=== PATIENT | male | born 1975 | race Caucasian/White ===

== ENCOUNTER → 2021-06-05 18:08 | Outpatient (CLI) | payer MEDICAID, SELFPAY ==
[2021-06-05 19:07] LABS: Basophils # 0.1 K/mm3 (0-0.2); Basophils % 0.7 % (0.1-2.0); Eosinophils # 0.1 K/mm3 (0.0-0.4); Eosinophils % 1.5 % (0.1-12.0); Hemoglobin 15.7 g/dL (14.1-18.0); Lymphocytes # 1.6 K/mm3 (0.7-4.5); Lymphocytes % 22.6 % (10-50); Mean Corpuscular HGB Conc 32.8 g/dL (31.8-35.4); Mean Corpuscular Hemoglobin 29.2 pg (27.0-31.2); Mean Corpuscular Volume 89.2 fl (80-94); Mean Platelet Volume 8.2 fl (7.4-10.4); Monocytes # 0.4 K/mm3 (0.1-1.0); Monocytes % 6.5 % (1.7-9.3); Neutrophils # 4.7 K/mm3 (1.8-7.8); Neutrophils % 68.7 % (37.0-80.0); Platelet Count 374 K/mm3 (142-424); Red Blood Count 5.38 M/mm3 (4.60-6.20); Red Cell Distribution Width 13.1 % (11.5-17.5); White Blood Count 6.9 K/mm3 (4.8-10.8)
[2021-06-05 20:03] LABS: Alanine Aminotransferase 89 U/L (12-78); Albumin Level 4.5 g/dl (3.5-5.0); Albumin/Globulin Ratio 1.3 (1.1-1.8); Alkaline Phosphatase 84 U/L (38-126); Anion Gap 13.4 mEq/L (5-15); Aspartate Amino Transferase 61 U/L (17-59); Bilirubin,Total 0.3 mg/dl (0.2-1.3); Blood Urea Nitrogen 21 mg/dl (9-20); Calcium 9.9 mg/dl (8.4-10.2); Carbon Dioxide 32 mmol/L (22.0-30.0); Chloride 99 mmol/L (98-107); Chol/HDL Ratio 7.8 (1-3.5); Cholesterol 203 mg/dl (140-200); Estimated Glomerular Filt Rate 80 ml/min (>60); GFR (African American) 97 ML/MIN (>60); Globulin 3.4 g/dL (1.3-3.2); Glucose 116 mg/dl (74-100); HDL Cholesterol 26 mg/dl (40-60); Potassium 4.4 mmoL/L (3.5-5.1); Sodium 140 mmol/L (136-145); Total Protein,Serum 7.9 g/dl (6.3-8.2); Triglycerides 355 mg/dl (30-150); VLDL Cholesterol 71 mg/dL (0-40)
[2021-06-05 20:14] LABS: Direct LDL Cholesterol 127.73 mg/dL (100-129)
== END ==
PROVIDERS: Visit Provider Family Medicine
DX: E03.9 Hypothyroidism, unspecified (principal); K64.9 Unspecified hemorrhoids
CPT/HCPCS: 80053; 80061; 85025

== ENCOUNTER → 2022-09-13 10:46 | Outpatient (CLI) | payer MEDICAID, SELFPAY ==
[2022-09-13 18:46] LABS: Basophils % 0.3 % (0.1-2.0); Eosinophils % 0.3 % (0.1-12.0); Hematocrit 53.4 % (42.0-52.0); Hemoglobin 17.5 g/dL (14.1-18.0); Lymphocytes # 1.9 K/mm3 (0.7-4.5); Lymphocytes % 17.6 % (10-50); Mean Corpuscular HGB Conc 32.8 g/dL (31.8-35.4); Mean Corpuscular Hemoglobin 29.1 pg (27.0-31.2); Mean Corpuscular Volume 88.8 fl (80-94); Monocytes # 0.6 K/mm3 (0.1-1.0); Monocytes % 5.4 % (1.7-9.3); Neutrophils # 8.1 K/mm3 (1.8-7.8); Neutrophils % 76.4 % (37.0-80.0); Platelet Count 301 K/mm3 (142-424); Red Blood Count 6.01 M/mm3 (4.60-6.20); Red Cell Distribution Width 13.2 % (11.5-17.5); White Blood Count 10.6 K/mm3 (4.8-10.8)
[2022-09-13 19:03] LABS: Alanine Aminotransferase 96 U/L (12-78); Albumin/Globulin Ratio 1.4 (1.1-1.8); Alkaline Phosphatase 83 U/L (38-126); Anion Gap 11.1 mEq/L (5-15); Aspartate Amino Transferase 59 U/L (17-59); Bilirubin,Total 0.6 mg/dl (0.2-1.3); Blood Urea Nitrogen 20 mg/dl (9-20); Calcium 9.3 mg/dl (8.4-10.2); Carbon Dioxide 31 mmol/L (22.0-30.0); Chloride 99 mmol/L (98-107); Cholesterol 232 mg/dl (140-200); Estimated Glomerular Filt Rate 71 ml/min (>60); GFR (African American) 86 ML/MIN (>60); Globulin 3.5 g/dL (1.3-3.2); Glucose 101 mg/dl (74-100); HDL Cholesterol 33 mg/dl (40-60); Potassium 4.1 mmoL/L (3.5-5.1); Sodium 137 mmol/L (136-145); Total Protein,Serum 8.5 g/dl (6.3-8.2); Triglycerides 309 mg/dl (30-150); VLDL Cholesterol 62 mg/dL (0-40)
[2022-09-13 19:14] LABS: Direct LDL Cholesterol 145.74 mg/dL (100-129)
[2022-09-13 19:33] LABS: Prostate Specific Ag Screen 1.1 ng/ml (0.0-4.0); Thyroid Stimulating Hormone 2.16 uIU/mL (0.465-4.68)
[2022-09-13 21:01] LABS: Hemoglobin A1C 8.8 % (4.0-6.0)
== END ==
PROVIDERS: PCP Family Medicine; Visit Provider Family Medicine
DX: G51.0 Bell's palsy (principal); Z79.899 Other long term (current) drug therapy; Z12.5 Encounter for screening for malignant neoplasm of prostate
CPT/HCPCS: 80053; 80061; 83036; 84443; 85025; G0103

== ENCOUNTER 2023-06-16 23:17 | Outpatient (CLI) | payer MEDICAID, SELFPAY ==
[2023-06-16 18:29] LABS: Basophils % 0.4 % (0.1-2.0); Eosinophils # 0.1 K/mm3 (0.0-0.4); Eosinophils % 1.7 % (0.1-12.0); Hematocrit 48.9 % (42.0-52.0); Hemoglobin 16.3 g/dL (14.1-18.0); Lymphocytes # 1.7 K/mm3 (0.7-4.5); Lymphocytes % 22.2 % (10-50); Mean Corpuscular HGB Conc 33.4 g/dL (31.8-35.4); Mean Corpuscular Hemoglobin 29.4 pg (27.0-31.2); Mean Platelet Volume 8.8 fl (7.4-10.4); Monocytes # 0.5 K/mm3 (0.1-1.0); Monocytes % 5.8 % (1.7-9.3); Neutrophils # 5.4 K/mm3 (1.8-7.8); Neutrophils % 69.9 % (37.0-80.0); Platelet Count 304 K/mm3 (142-424); Red Blood Count 5.56 M/mm3 (4.60-6.20); Red Cell Distribution Width 13.7 % (11.5-17.5); White Blood Count 7.7 K/mm3 (4.8-10.8)
[2023-06-16 18:38] LABS: Alanine Aminotransferase 88 U/L (12-78); Albumin Level 4.3 g/dl (3.5-5.0); Albumin/Globulin Ratio 1.4 (1.1-1.8); Alkaline Phosphatase 82 U/L (38-126); Anion Gap 8.3 mEq/L (5-15); Aspartate Amino Transferase 59 U/L (17-59); Bilirubin,Total 0.5 mg/dl (0.2-1.3); Blood Urea Nitrogen 12 mg/dl (9-20); Calcium 9.1 mg/dl (8.4-10.2); Carbon Dioxide 29 mmol/L (22.0-30.0); Chloride 104 mmol/L (98-107); Chol/HDL Ratio 5.3 (1-3.5); Cholesterol 144 mg/dl (140-200); Estimated Glomerular Filt Rate 79 ml/min (>60); GFR (African American) 96 ML/MIN (>60); Globulin 3.1 g/dL (1.3-3.2); Glucose 110 mg/dl (74-100); HDL Cholesterol 27 mg/dl (40-60); Potassium 4.3 mmoL/L (3.5-5.1); Sodium 137 mmol/L (136-145); Total Protein,Serum 7.4 g/dl (6.3-8.2); Triglycerides 241 mg/dl (30-150); VLDL Cholesterol 48 mg/dL (0-40)
[2023-06-16 18:50] LABS: Direct LDL Cholesterol 82.36 mg/dL (100-129)
== END 2023-06-16 23:59 ==
LOC: LAB.DROPOF 23:18
PROVIDERS: PCP Family Medicine; Visit Provider Family Medicine
DX: Z00.00 Encounter for general adult medical examination without abnormal findings (principal); E11.9 Type 2 diabetes mellitus without complications; M53.86 Other specified dorsopathies, lumbar region; G89.29 Other chronic pain; Z79.84 Long term (current) use of oral hypoglycemic drugs
CPT/HCPCS: 80053; 80061; 83036; 85025

== ENCOUNTER 2024-11-18 10:08 | Outpatient (CLI) | payer MEDICAID, SELFPAY ==
[2024-11-18 18:28] LABS: Basophils % 0.3 % (0.1-2.0); Eosinophils # 0.2 Kmm3 (0.0-0.4); Eosinophils % 3.9 % (0.1-12.0); Hematocrit 47.6 % (42.0-52.0); Hemoglobin 15.1 g/dL (14.1-18.0); Immature Granulocytes # 0.02 10^3uL; Immature Granulocytes % 0.3 %; Lymphocytes # 1.8 K/mm3 (0.7-4.5); Lymphocytes % 28.6 % (10-50); Mean Corpuscular HGB Conc 31.7 g/dL (31.8-35.4); Mean Corpuscular Hemoglobin 27.8 pg (27.0-31.2); Mean Corpuscular Volume 87.7 fl (80-94); Mean Platelet Volume 10.3 fl (7.4-10.4); Monocytes # 0.5 K/mm3 (0.1-1.0); Monocytes % 7.6 % (1.7-9.3); Neutrophils # 3.7 K/mm3 (1.8-7.8); Neutrophils % 59.3 % (37.0-80.0); Nucleated Red Blood Cells # 0 10^3/uL; Nucleated Red Blood Cells % 0 %; Platelet Count 350 K/mm3 (142-424); Red Blood Count 5.43 M/mm3 (4.60-6.20); Red Cell Distribution Width 12.7 % (11.5-17.5); Red Cell Distribution Width-SD 40.7 fL; White Blood Count 6.2 K/mm3 (4.8-10.8)
[2024-11-18 19:04] LABS: Microalbumin/Creatinine Ratio 57.7
[2024-11-18 19:08] LABS: Creatinine,Urine Random 196 mg/dL (Not Estab.)
[2024-11-18 19:38] LABS: Alanine Aminotransferase 76 U/L (12-78); Albumin Level 4.1 g/dl (3.5-5.0); Albumin/Globulin Ratio 1.3 (1.1-1.8); Alkaline Phosphatase 80 U/L (38-126); Aspartate Amino Transferase 49 U/L (17-59); Bilirubin,Total 0.5 mg/dl (0.2-1.3); Blood Urea Nitrogen 15 mg/dl (9-20); Calcium 9.2 mg/dl (8.4-10.2); Carbon Dioxide 28 mmol/L (22.0-30.0); Chloride 105 mmol/L (98-107); Chol/HDL Ratio 6.7 (1-3.5); Cholesterol 147 mg/dl (140-200); Estimated Glomerular Filt Rate 79 ml/min (>60); GFR (African American) 95 ML/MIN (>60); Globulin 3.2 g/dL (1.3-3.2); Glucose 122 mg/dl (74-100); HDL Cholesterol 22 mg/dl (40-60); Sodium 137 mmol/L (136-145); Total Protein,Serum 7.3 g/dl (6.3-8.2); Triglycerides 296 mg/dl (30-150); VLDL Cholesterol 59 mg/dL (0-40)
[2024-11-18 19:49] LABS: Direct LDL Cholesterol 65.69 mg/dL (100-129)
[2024-11-18 20:09] LABS: Prostate Specific Ag Screen 1.2 ng/ml (0.0-4.0)
[2024-11-18 20:19] LABS: HIV Combo NEGATIVE (Negative)
[2024-11-18 20:24] LABS: Hepatitis C Ab Qual. W/ RFX NEGATIVE (Negative)
--- OUTSIDE RECORDS SUMMARY | 2024-11-19 23:15 | XMS_ITS | Clinical Summary ---
Author Organization [facility] Address [address] [place] [address] Phone Care Team Providers Care Quality Control Expert Name Role Phone Donavan Martinez MD Primary Care Provider [phone] Allergies No known active allergies Medications oxyCODONE (ROXICODONE) 5 mg Oral Tablet Take by mouth every 6 hours as needed for Pain. Active lisinopril (PRINIVIL;ZESTRIL ) 40 mg Oral Tablet Take 40 mg by mouth daily. Active pravastatin (PRAVACHOL) 40 mg Oral Tablet Take 40 mg by mouth daily. Active cyclobenzaprine (FLEXERIL) 10 mg Oral TabletIndications :Lumbar disc prolapse with compression radiculopathy Take 1 Tab by mouth 3 times daily as needed for Muscle spasms. 16 Tab 1 11/24/19 17 Active oxyCODONE-acetami nophen (PERCOCET) 5-325 mg Oral Tablet Take 1 Tab by mouth every 6 hours as needed for Acute Pain (R52). 18 Tab 11/03/19 19 Active gabapentin (NEURONTIN) 400 mg Oral Capsule Take 400 mg by mouth 4 times daily as needed. for pain 08/22/19 22 Active pramoxine-hydroco rtisone 1-1 % Rect Cream APPLY RECTALLY TO THE AFFECTED AREA THREE TIMES DAILY NEEDED FOR HEMORRHOIDS 08/23/19 22 Active sod picosulf-mag ox-citric ac (CLENPIQ) 10 mg-3.5 gram -12 gram/160 mL Oral SolutionIndicatio ns:Personal history of colonic polyps Take 1 Each by mouth Preprocedure for up to 1 dose. Take 1 kit per physician instructions 1 Each 09/04/19 Active Additional Information Patient not taking.Reported on 11/20/2021 Active Problems Problem Noted Date Diagnosed Date Personal history of colonic polyps 09/03/2021 Internal bleeding hemorrhoids 05/10/2019 Overview (09/03/2021): -s/p banding in 2019 Surgical History Surgery Date Site/Laterality Comments COLONOSCOPY HEMORRHOID SURGERY N/A Banding Medical History Medical History Date Comments Herniated cervical disc Lumbar herniated disc Hypertension Back pain Hyperlipemia Family History Medical History Relation Name Comments Cancer Maternal Grandmother Relation Name Status Comments Maternal Grandmother Social History Tobacco Use Types Packs/Day Years Used Date Smoking Tobacco: Never Smokeless Tobacco: Never Alcohol Use Standard Drinks/Week Comments Not Currently 0 (1 standard drink = 0.6 oz pur e alcohol) Sex and Gender Information Value Date Recorded Sex Assigned at Not on file Legal Sex Male 1:48 PM EDT Gender Identity Not on file Sexual Orientation Not on file Obstetrics History Last Filed Vital Signs Vital Sign Reading Time Taken Comments Blood Pressure 137/88 11/20/2021 9:23 AM EDT Pulse 90 11/20/2021 9:23 AM EDT Temperature 36.4 C (97.5 F) 11/20/2021 7:49 AM EDT Respiratory Rate 16 11/20/2021 7:49 AM EDT Oxygen Saturation 97% 11/20/2021 9:23 AM EDT Inhaled Oxygen Concentration - - Weight 110.7 kg (244 lb) 11/20/2021 7:49 AM EDT Height 172.7 cm (5' 8 ) 11/20/2021 7:49 AM EDT Body Mass Index 37.1 11/20/2021 7:49 AM EDT Plan of Treatment Health Maintenance Due Date Last Done Comments Annual Wellness Exam 1976 Hepatitis B Vaccine (1 of 3 - 19+ 3-dose series) 1992 Cologuard 2018 FIT 2018 Sigmoidoscopy 2018 Virtual Colonography 2018 Pneumococcal Vaccine 50+ (1 of 1 - PCV) 2023 Zoster (1 of 2) 2023 COVID-19 Vaccine ( - 2023-2 5 season) 2024 Colon Cancer Screening 09/13/2024 Colonoscopy 09/13/2024 09/13/2021, 12/15/2018 Influenza Vaccine (Season Ended) 2025 03/19/2021, 03/20/2017 DTaP/TDaP/Td (3 - Td or Tdap) 10/24/2026, 05/20/2011 Meningococcal B Vaccine Aged Out No l onger eligible based on patient's age to complete this topic Goals Goal Patient Goal Type Associated Problems Recent Progress Patient-Stated? Author Maintain a healthy diet, exercise regularly and maintain an ideal body weight General No Adelita Caballero, RADU Procedures Procedure Name Priority Date/Time Associated Diagnosis Comments [facility] COLONOSCOPY Routine 09/13/2021 3:40 PM EDT Screening for colon cancer Internal hemorrhoid, bleeding from Last 3 Months or Most Recently Relevant to Health Maintenance Results * [facility] COLONOSCOPY (09/13/2021 3:40 PM EDT) 09/13/2021 3:40 PM EDT Impressions [facility] - 09/13/2021 4:56 PM EDT Stool in the whole colon. Normal mucosa in the whole colon. Internal hemorrhoids. Plan: High Fiber Diet. Soluble fiber is recommended for diarrhea and insoluble fiber is recommended for constipation. Colonoscopy in 5 years-history of polyps and suboptimal prep Refer for hemorrhoidal banding Miralax daily for constipation This section is an excerpt of the full report. Tyrone Zuinga III, MD GI PROCEDURE ORDERABLES Ed ited Result - Final [facility] [address] [place] [address] from Last 3 Months or Most Recently Relevant to Health Maintenance Insurance [facility] [id number] [place] [id number] [place] [id number] MDR Care Teams Quality Control Expert Relationship Specialty Start Date End Date Donavan Martinez MD [address] [place] [id number] PCP - General Family Medicine 09/03/21
--- OUTSIDE RECORDS SUMMARY | 2024-11-19 23:15 | XMS_ITS | Clinical Summary ---
Author Organization [employer] [facility] are Address [address] [place] [address] Phone Care Team Providers Care Factory Hand Name Role Phone Michael Forbes MD Primary Care Physician [phone] Conditions or Problems Problem Name Problem Code Onset Date Status Entry Date Provider Comment Standard Description Annotate Body mass index (BMI) 36.0-36.9; adult Z68.36 (ICD-10-C M) 11/12 Active 11/12 Michael Forbes MD Body mass index [BMI] 36.0-36.9, adult Body mass index (BMI) 36.0-36.9; adult Z68.36 (ICD-10-C M) 11/12 Correction 11/12 Michael Forbes MD Body mass index [BMI] 36.0-36.9, adult Body mass index (BMI) 36.0-36.9; adult Z68.36 (ICD-10-C M) 11/12 Removed 11/12 Michael Forbes MD Body mass index [BMI] 36.0-36.9, adult Lumbar disc degeneration 37401867 (SNOMED CT) 2014 Active 11/12 Michael Forbes MD Degeneration of lumbar intervertebral disc Hypertension 96946998 (SNOMED CT) 2000 Active 11/12 Michael Forbes MD Hypertensive disorder Medications Medication Instructions Start Date Stop Date Generic Name NDC Provider NAPROXEN 500 MG TABS TAKE 1 TABLET BY MOUTH TWICE DAILY NEEDED 3 NAPROXEN [id number] Michael Forbes MD BACLOFEN 10 MG TABS TAKE 1 TABLET 3 TIMES DAILY NEEDED FOR MUSCLES 6 BACLOFEN [id number] Michael Forbes MD NAPROXEN 500 MG TABS TAKE 1 TABLET BY MOUTH 2 TIMES A DAY NEEDED 6 NAPROXEN [id number] Michael Forbes MD LISINOPRIL 20 MG TABS one tablet twice daily 6 LISINOPRIL [id number] Michael Forbes MD Medications Administered No information available. Allergies, Adverse Reactions, Alerts Observed no known allergies at Results Date Name Value Unit Range Flag Description Lab Report: LIPID PANEL WITH REFLEX TO DIRECT LDL, LIPID PANEL WITH REFL ... VIT D 25-OH 27 ng/mL 30-100 L 25-Hydrox ycalciferol [Mass/volume] in Serum or Plasma TSH 1.48 u[iU]/mL 0.40-4.50 N Thyrotropi n [Units/volume] in Serum or Plasma MPV 9.7 fL 7.5-12.5 N Platelet josé miguel n volume [Entitic volume] in Blood by Ellis-Leigh PLATELETK/UL 309 THOUSAND/UL 10*3/uL 140-400 N platelet count RDW 13.4 % 11.0-15.0 N Erythrocyte distribution width [Ratio] by Automated count OL-MCHC 34.3 g/dL 32.0-36.0 N mean corpus cular hemoglobin concentration, rbc MCH 28.9 pg 27.0-33.0 N MCH [Entiti c mass] by Automated count MCV 84.3 fL 80.0-100.0 N MCV [Entit ic volume] by Automated count HCT 48.4 % 38.5-50.0 N Hematocrit [Volume Fraction] of Blood by Automated count HGB 16.6 g/dL 13.2-17.1 N Hemoglobin [Mass/volume] in Blood RBC M/UL 5.74 MILLION/UL 10*6/uL 4.20-5.80 N re d blood count WBC CT BLOOD 7.0 10*3/uL 3.8-10.8 N leukocy te count, blood ESR 9 mm/h < OR = 15 N Erythrocyte sedimentation rate by Westergren method SGPT (ALT) 53 U/L 9-46 H Alanine aminotransferase [Enzymatic activity/volume] in Serum or Plasma SGOT (AST) 32 U/L 10-40 N Aspartate aminotransferase [Enzymatic activity/volume] in Serum or Plasma ALK PHOS 79 U/L 40-115 N Alkaline darwin sphatase [Enzymatic activity/volume] in Blood BILI TOTAL 0.4 mg/dL 0.2-1.2 N Bilirubin. total [Mass/volume] in Serum or Plasma A/G RATIO 1.3 (calc) 1.0-2.5 N Albumin/ Globulin [Mass Ratio] in Serum or Plasma GLOBULIN TOT 3.4 G/DL (CALC) g/dL 1.9-3.7 N Globulin [Mass/volume] in Serum ALBUMIN EOP 4.4 g/dL 3.6-5.1 N Albumin [ Mass/volume] in Serum or Plasma by Electrophoresis PROTEIN, TOT 7.8 g/dL 6.1-8.1 N Protein [Mass/volume] in Serum or Plasma CALCIUM 9.2 mg/dL 8.6-10.3 N Calcium [Moles/volume] in Serum or Plasma CO2 24 mmol/L 20-32 N Carbon dioxid e, total [Moles/volume] in Venous blood CHLORIDE BLD 105 mmol/L 98-110 N chloride , blood POTASSIUM 4.1 mmol/L 3.5-5.3 N Potassium [Moles/volume] in Serum or Plasma SODIUM 139 mmol/L 135-146 N Sodium [Moles /volume] in Serum or Plasma BUN/CREAT NOT APPLICABLE (calc) 6-22 Urea nitrogen/Creatinine [Mass Ratio] in Serum or Plasma EGFR IF AFA 107 mL/min/1. 73m2 >OR = 60 N Glomerular filtratio n rate/1.73 sq M.predicted among blacks [Volume Rate/Area] in Serum, Plasma or Blood by Creatinine-based formula (MDRD) EGFR 93 mL/min/1. 73m2 >OR = 60 N Glomerular filtratio n rate/1.73 sq M.predicted [Volume Rate/Area] in Serum, Plasma or Blood by Creatinine-based formula (MDRD) CREATININE 0.98 mg/dL 0.60-1.35 N Creatini ne [Mass/volume] in Serum or Plasma BUN 16 mg/dL 7-25 N Urea nitrogen [Mass/volume] in Serum or Plasma GLUCOSE SER 90 mg/dL 65-139 N Glucose [ Mass/volume] in Serum or Plasma NON-HDL CHOL 163 MG/DL (CALC) mg/dL <130 H cholesterol, non -HDL, total CHOL/HDL % 6.3 (calc) <5.0 H cholest cari/HDL ratio, serum, percent LDL 122 MG/DL (CALC) mg/dL H Cholesterol in L DL [Mass/volume] in Serum or Plasma - mg/dL TRIGLYC TOT 264 mg/dL <150 H Triglycer wilder [Mass/volume] in Serum or Plasma - mg/dL HDL 31 mg/dL >40 L Cholesterol i n HDL [Mass/volume] in Serum or Plasma - mg/dL CHOLESTEROL 194 mg/dL <200 N Cholester ol [Mass/volume] in Serum or Plasma - mg/dL Plan of Care Type Date Detail Appointment 03:30 PM [address], [address], [address] [facility] ([place]) Pain Relief [facility], [address] [place] [address], [phone] Referral [facility] ([facility]) Pain Relief [facility], [address] [place] [address], [phone] [facility] ([place]) [facility], [address], [address] Referral excluded fr om report: Pending order T1 BMP Pending order T1 Lipid Panel Pending order T1 TSH reflex to free T4 Pending order T1 CMP Pending order T1 CBC no diff Pending order T2 Vitamin D 25 Hydroxy Pending order T1 TSH reflex to free T4 Pending order T1 Lipid Panel Pending order T1 Sedimentation Rate RBC Procedures Code Procedure Name Date Entry Date [facility]-[id number] Medication Reconciliation CPT-3077F Most recent systolic blood pressure >=140 mm Hg CPT-3079F Most recent diastoli c blood pressure 80-89 mm Hg Pain [facility] in [facility] ([facility] [place]) [facility] 50004 T1 BMP [facility] 78986 T1 Lipid Panel [facility] 47359 T1 TSH reflex to free T4 201 02/12/06 [facility] 25671 T1 CMP [facility] 1759 T1 CBC no diff [facility] 70886 T2 Vitamin D 25 Hydroxy 2018 [facility] 70463 T1 TSH reflex to free T4 201 02/12/06 [facility] 94306 T1 Lipid Panel [facility] 809 T1 Sedimentation Rate RBC 20 25/11/05 [facility] N [place] [facility] ([facility]) Vital Signs Date Name Value Unit Description BMI (Body Mass Index) 36.47 kg/m2 Bod y Mass Index (Ratio) Body Temperature 97.5 [degF] temperat ure E&M Body Temperature 36.39 Meche temperat ure in centigrade E&M BP Diastolic 88 mm[Hg] blood pressu re, diastolic, second observation BP Diastolic 102 mm[Hg] blood pressu re, diastolic BP Systolic 153 mm[Hg] blood pressur e, systolic BP Systolic 140 mm[Hg] blood pressur e, systolic, second observation BSA (Body Surface Area) 2.28 b fernandez surface area Heart Rate 63 /min pulse rate Heart Rate 76 /min pulse rate 10 Height 172.72 cm height in cent imeters E&M Height 68 [in_us] height E&M Weight Measured 239 [lb_av] weight E& M Weight Measured 239 [lb_av] weight E& M Weight Measured 108.64 kg weight in kilograms E&M Immunizations No information available. Advance Directives No information available.
--- OUTSIDE RECORDS SUMMARY | 2024-11-19 23:15 | XMS_ITS | Data Portability ---
Author Organization [facility] Address [address] [place] [address] Care Team Providers Care Game Trapper Name Role Phone NATE TANG Primary Care Provider [phone] NATE TANG Referring Provider [phone] Assessment Encounter Date Assessment Date Assessment LastModified by Organization Details LastModified Time 01/15/2024 01/15/2024 This is an established patient with chronic pain that is been treated here since 2021. Interval history: 48-year-old male returns for evaluation of his chronic low back pain. No significant changes pain since he was last seen. He states with use of the medication he can remain functional, care for himself, care for his home. His back pain is nondraining, axial described as stiff, sharp, throbbing. Pain is aggravated with increased activity, weather change, walking long distances. Historically has declined injection therapy. No change in health otherwise. here for follow-up of chronic lumbar spine pain. He states his pain has remained stable over the last few months. He describes his pain as aching, stiff, throbbing, stabbing. Pain is made worse with increased activity, walking, standing, going up and down stairs, cold weather. He currently reports with use of oral medication and conservative measures his pain is well managed. Denies any changes in health. Brief Pain Hx This a former Dr. Villatoro patient 46-year-old male new patient referral for chronic low back and right leg pain. Reports pain started on 2001 without cause. Has been slowly progressive over the years to the point which is affecting his ability to perform ADLs. States that recently he has been under the care of Dr. Villatoro's group undergoing treatment mainly for medication management. States he has not had injections. Has been on combination of Percocet and gabapentin. That office no longer able to prescribe so he has been referred on to our office. Pertinent Imaging: MRI LUMBAR SPINE WO CONTRAST 01/02/2017: Alignment is normal. Marrow signal is normal. No subluxation, fracture, or destructive lesion seen. Conus and cauda equina are normal. The upper three lumbar discs are normal. At L4-5, a large right paracentral extrusion is noted with marked mass effect noted on the thecal sac. Marked mass effect noted on the adjacent nerve root. This be expected cause a right L5 radiculopathy if symptomatic. The right foramen is minimally narrowed. The left foramen is minimally narrowed as well. The disc protrusion is osteophyte covered suggesting some element of chronicity. No significant canal stenosis detected. At L5 S1, a posterior osteophyte is noted. This osteophyte abuts the S1 nerve roots bilaterally. It covers a disc protrusion indicating that this too is chronic. This extends into the foramina with mild foraminal narrowing bilaterally. 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 Gabapentin 400 mg 1 4 times a day. Medications evaluated and reviewed. Medications are tolerated well without reported adverse effects. Patient reporting >50% improvement in their ability to perform activities of daily living and in their symptom control with the addition of these medications. Compliance: The patient was advised that the purpose of this urine drug screen is to monitor for compliance and to assist in risk stratification. FABIÁN/OARS/INSPE CT was reviewed and is appropriate Last UDS confirmation was September 2023 and appropriate Based on the patients urine confirmation (LCMS) results, decision made to reduce his risk to moderate. He has passed all UDS screen since his new patient visit in 2021. There is been no compliance issues. He understands if at any point there is any aberrant behavior he will be increased back to high. In response to the patient's risk level and urine confirmation I plan to continue the patient's opioid prescription. ORT: 0 PHQ: 0 MDM: We will continue his medication without change. Medication allows remain functional, improve his quality of life, presents range of motion. No side effects. We have discussed injection therapy and is not wish to pursue this as the medication is managing his pain well. PLAN: 1. continue medication at same dose and frequency. Discussed new orders/changes with patient. Patient expressed agreement and full understanding of above plan. All questions answered in full. Follow-up in 60 days. This dictation is generated using voice recognition technology. There may be unintended errors. [email or web address] Not available 01/15/2024 11:07:23 03/17/2024 03/17/2024 Pain History: This is an established patient with chronic pain that is been treated here since 2021. Mr. Andres is a 48-year-old male who returns the office today with ongoing lower back pain. His pain is primarily axial in nature, extending into bilateral paraspinal regions. He does not experience any radiation of pain into his lower extremities. His symptoms fluctuate depending on his activity level, made worse with overexertion, rotation of body and frequent changes of weather. His symptoms remain tolerable with his current medication regimen and conservative measures. Past Medical History: Chronic low back pain Imaging: MRI LUMBAR SPINE WO CONTRAST 01/02/2017: Alignment is normal. Marrow signal is normal. No subluxation, fracture, or destructive lesion seen. Conus and cauda equina are normal. The upper three lumbar discs are normal. At L4-5, a large right paracentral extrusion is noted with marked mass effect noted on the thecal sac. Marked mass effect noted on the adjacent nerve root. This be expected cause a right L5 radiculopathy if symptomatic. The right foramen is minimally narrowed. The left foramen is minimally narrowed as well. The disc protrusion is osteophyte covered suggesting some element of chronicity. No significant canal stenosis detected. At L5 S1, a posterior osteophyte is noted. This osteophyte abuts the S1 nerve roots bilaterally. It covers a disc protrusion indicating that this too is chronic. This extends into the foramina with mild foraminal narrowing bilaterally. Surgical evaluation/ history: None Conservative Treatments: Patient has failed conservative measures for greater than 6 weeks including physical therapy/chiroprac tic care/spinal manipulation, a monitored home exercise program, and/or NSAIDs within the last six months. Interventional treatment history: None Previous analgesics: Diclofenac Meloxicam Lyrica Cymbalta Hydrocodone Current analgesics: Percocet 10/325 mg 1 4 times a day. Gabapentin 400 mg 1 4 times a day. Compliance Monitoring: FABIÁN/OARS/INSPE CT was reviewed and is appropriate Last UDS confirmation was 01/15/2024 and appropriate Based on the patients urine confirmation (LCMS) results, decision made to reduce his risk to moderate. He has passed all UDS screen since his new patient visit in 2021. There is been no compliance issues. He understands if at any point there is any aberrant behavior he will be increased back to high. In response to the patient's risk level and urine confirmation I plan to continue the patient's opioid prescription. He will follow-up in 2 months for medication management Anticoagulant/Ant iplatelet Medications: Denies [email or web address] Not available 03/17/2024 11:00:44 05/12/2024 05/12/2024 Pain History: This is an established patient with chronic pain that is been treated here since 2021. Mr. Andres is a 49-year-old male Here complaints of persistent lower back pain. He denies any changes in his health or pain condition since last visit. His pain is nonradiating, axial nature and extends into bilateral paraspinal regions. His symptoms are aggravated with overexertion, rotation of the body, bending lifting and cold weather. He receives significant symptom relief with oral medication and conservative measures. Past Medical History: Chronic low back pain Imaging: MRI LUMBAR SPINE WO CONTRAST 01/02/2017: Alignment is normal. Marrow signal is normal. No subluxation, fracture, or destructive lesion seen. Conus and cauda equina are normal. The upper three lumbar discs are normal. At L4-5, a large right paracentral extrusion is noted with marked mass effect noted on the thecal sac. Marked mass effect noted on the adjacent nerve root. This be expected cause a right L5 radiculopathy if symptomatic. The right foramen is minimally narrowed. The left foramen is minimally narrowed as well. The disc protrusion is osteophyte covered suggesting some element of chronicity. No significant canal stenosis detected. At L5 S1, a posterior osteophyte is noted. This osteophyte abuts the S1 nerve roots bilaterally. It covers a disc protrusion indicating that this too is chronic. This extends into the foramina with mild foraminal narrowing bilaterally. Surgical evaluation/ history: None Conservative Treatments: Patient has failed conservative measures for greater than 6 weeks including physical therapy/chiroprac tic care/spinal manipulation, a monitored home exercise program, and/or NSAIDs within the last six months. Interventional treatment history: None Previous analgesics: Diclofenac Meloxicam Lyrica Cymbalta Hydrocodone Current analgesics: Percocet 10/325 mg 1 4 times a day. Gabapentin 400 mg 1 4 times a day. Compliance Monitoring: UDS was obtained at today's visit. Will send off results. FABIÁN/OARS/INSPE CT was reviewed and is appropriate Last UDS confirmation was 01/15/2024 and appropriate Based on the patients urine confirmation (LCMS) results, decision made to reduce his risk to moderate. He has passed all UDS screen since his new patient visit in 2021. There is been no compliance issues. He understands if at any point there is any aberrant behavior he will be increased back to high. In response to the patient's risk level and urine confirmation I plan to continue the patient's opioid prescription. He will follow-up in 2 months for medication management Anticoagulant/Ant iplatelet Medications: Denies [email or web address] Not available 05/12/2024 09:58:52 07/14/2024 07/14/2024 Pain History: This is an established patient with chronic pain that is been treated here since 2021. Mr. Andres is a 49-year-old male returning for evaluation of his chronic lower back pain. He denies any changes since last visit. He continues to experience pain in his lower back that is primarily axial in nature. He denies any radiation of pain to his lower extremities. He is very happy with the relief offer from his oral medication. He does not feel injection therapy is necessary at this time. Past Medical History: Chronic low back pain Imaging: MRI LUMBAR SPINE WO CONTRAST 01/02/2017: Alignment is normal. Marrow signal is normal. No subluxation, fracture, or destructive lesion seen. Conus and cauda equina are normal. The upper three lumbar discs are normal. At L4-5, a large right paracentral extrusion is noted with marked mass effect noted on the thecal sac. Marked mass effect noted on the adjacent nerve root. This be expected cause a right L5 radiculopathy if symptomatic. The right foramen is minimally narrowed. The left foramen is minimally narrowed as well. The disc protrusion is osteophyte covered suggesting some element of chronicity. No significant canal stenosis detected. At L5 S1, a posterior osteophyte is noted. This osteophyte abuts the S1 nerve roots bilaterally. It covers a disc protrusion indicating that this too is chronic. This extends into the foramina with mild foraminal narrowing bilaterally. Surgical evaluation/ history: None Conservative Treatments: Patient has failed conservative measures for greater than 6 weeks including physical therapy/chiroprac tic care/spinal manipulation, a monitored home exercise program, and/or NSAIDs within the last six months. Interventional treatment history: None Previous analgesics: Diclofenac Meloxicam Lyrica Cymbalta Hydrocodone Current analgesics: Percocet 10/325 mg 1 4 times a day. Gabapentin 400 mg 1 4 times a day. Compliance Monitoring: UDS was obtained at today's visit. Will send off results. FABIÁN/OARS/INSPE CT was reviewed and is appropriate Last UDS confirmation was 05/12/2024 and appropriate Based on the patients urine confirmation (LCMS) results, decision made to reduce his risk to moderate. He has passed all UDS screen since his new patient visit in 2021. There is been no compliance issues. He understands if at any point there is any aberrant behavior he will be increased back to high. In response to the patient's risk level and urine confirmation I plan to continue the patient's opioid prescription. He will follow-up in 2 months for medication management Anticoagulant/Ant iplatelet Medications: Denies [email or web address] Not available 07/14/2024 11:30:48 09/13/2024 09/13/2024 Pain History: This is an established patient with chronic pain that is been treated here since 2021. Mr. Andres is a 49-year-old male in office today with ongoing complaints of lower back pain. His symptoms remain stable and unchanged since last visit. The pain is primarily axial in nature with no radiation into his lower extremities. His pain has become aggravated with overexertion, repetitive movements and frequent changes in weather, however he received significant relief with oral medication and conservative measures. He continues to decline all interventional procedures. Past Medical History: Chronic low back pain Imaging: MRI LUMBAR SPINE WO CONTRAST 01/02/2017: Alignment is normal. Marrow signal is normal. No subluxation, fracture, or destructive lesion seen. Conus and cauda equina are normal. The upper three lumbar discs are normal. At L4-5, a large right paracentral extrusion is noted with marked mass effect noted on the thecal sac. Marked mass effect noted on the adjacent nerve root. This be expected cause a right L5 radiculopathy if symptomatic. The right foramen is minimally narrowed. The left foramen is minimally narrowed as well. The disc protrusion is osteophyte covered suggesting some element of chronicity. No significant canal stenosis detected. At L5 S1, a posterior osteophyte is noted. This osteophyte abuts the S1 nerve roots bilaterally. It covers a disc protrusion indicating that this too is chronic. This extends into the foramina with mild foraminal narrowing bilaterally. Surgical evaluation/ history: None Conservative Treatments: Patient has failed conservative measures for greater than 6 weeks including physical therapy/chiroprac tic care/spinal manipulation, a monitored home exercise program, and/or NSAIDs within the last six months. Interventional treatment history: None Previous analgesics: Diclofenac Meloxicam Lyrica Cymbalta Hydrocodone Current analgesics: Percocet 10/325 mg 1 4 times a day. Gabapentin 400 mg 1 4 times a day. Compliance Monitoring: UDS was obtained at today's visit. Will send off results. FABIÁN/OARS/INSPE CT was reviewed and is appropriate Last UDS confirmation was 07/14/2024 and appropriate Based on the patients urine confirmation (LCMS) results, decision made to reduce his risk to moderate. He has passed all UDS screen since his new patient visit in 2021. There is been no compliance issues. He understands if at any point there is any aberrant behavior he will be increased back to high. In response to the patient's risk level and urine confirmation I plan to continue the patient's opioid prescription. He will follow-up in 2 months for medication management Anticoagulant/Ant iplatelet Medications: Denies [email or web address] Not available 09/13/2024 09:42:38 Plan of Treatment Reminders Order Date Submit Date Provider Last Modified By Organization Details Last Modified Time Details Appointments None recorded. Lab drug screen, urine 2024 025 [facility], [facility], [address] [place] [address], [id number], 13:20:04 drug screen, urine 2024 025 [facility], [facility], [address] [place] [address], [id number], 5 12:22:49 drug screen, urine 2023 024 [facility], [facility], [address] [place], [address], 4 13:06:13 drug screen, urine 2023 024 [facility], [facility], [address] [place] [address], [id number], 4 10:34:51 Referral None recorded. Procedures remote therapeutic monitoring to monitor musculoskel etal system (PROC) - Patient prescribed RTM (Remote Therapeutic Monitoring) to prevent further functional decline and monitor treatment effectivene ss. Patient will complete medication tracking and physical therapy exercises as instructed. Monitoring to take place over the next 12 months using the CP&S Barber to also include functional assessments as well as daily pain scores. Patient consent obtained and device provided. 2023 024 [email or web address] Not available 21:38:30 Surgeries None recorded. Imaging None recorded. Medication Orders Percocet 10 mg-325 mg tablet 2024 025 [facility] [id number], [address] [place] [address], [address], 5 09:51:58 Percocet 10 mg-325 mg tablet 2024 025 [facility] [id number], [address] [place] [address], [address], 5 09:52:00 gabapentin 400 mg capsule 2024 025 [facility] [id number], [address] [place] [address], [address], 5 09:45:26 Percocet 10 mg-325 mg tablet 2024 025 [facility] [id number], [address], [place], [address], 5 10:42:26 Percocet 10 mg-325 mg tablet 2024 025 [facility] [id number], [address], [place], [address], 5 10:42:29 gabapentin 400 mg capsule 2024 025 [facility] [id number], [address], [place], [address], 5 11:32:29 Percocet 10 mg-325 mg tablet 2023 024 [facility] [id number], [address] [place], [address], 4 10:04:07 Percocet 10 mg-325 mg tablet 2023 024 [facility] [id number], [address] [place], [address], 4 10:04:10 gabapentin 400 mg capsule 2023 024 [facility] [id number], [address] [place], [address], 4 10:00:20 Percocet 10 mg-325 mg tablet 2023 024 [facility] [id number], [address] [place], [address], 4 11:33:41 Percocet 10 mg-325 mg tablet 2023 024 [facility] [id number], [address] [place], [address], 4 14:23:45 gabapentin 400 mg capsule 2023 024 [facility] [id number], [address] [place], [address], 4 11:01:15 Percocet 10 mg-325 mg tablet 2023 024 [facility] [id number], [address] [place] [address], [address], 4 12:10:17 Percocet 10 mg-325 mg tablet 2023 024 [facility] [id number], [address] [place] [address], [address], 4 12:10:15 gabapentin 400 mg capsule 2023 024 [facility] [id number], [address] [place] [address], [address], 10:44:07 Patient TargetsNo targets recorded. Patient Instructions Encounter Date Encounter Id Patient Instructions Last Modified By Organization Details Last Modified Time 01/15/2024 [id number] chronic pain: care instructions [email or web address] Not available 01/15/2024 13:08:22 behavioral healt h screen* [email or web address] Not available 01/15/2024 13:16:21 05/12/2024 [id number] chronic pain: care instructions [email or web address] Not available 05/12/2024 10:12:40 07/14/2024 [id number] chronic pain: care instructions [email or web address] Not available 07/14/2024 11:31:49 Reason for Referral None Reported. Results Created Date Observation Date Name Description Value Unit Range Abnormal Flag Note LastModifiedBy Organization Detail LastModifiedTime Result Notes None recorded. Problems Name Problem SNOMED Code Status Onset Date Resolution Date Notes Provider Name and Address Organization Details Recorded Time Chronic pain 16952913 Active 2023 KARTHIK LINK NP [address] [place] [address], [id number] , [facility] 4 12:40:58 Lumbar radiculiti s [id number] 9104 Active 2021 Willam Packer MD [address] [place] [address], [phone] , [facility] 2 13:41:44 Lumbar spondylosi s 399468663 Active 2021 Willam Packer MD [address] [place] [address], [phone] , [facility] 2 13:41:49 Problem Notes None recorded. Medical Equipment None Reported. Allergies No known drug allergies Medications Name Sig Start Date Stop Date Status Note LastModified by Organization Details LastModified Time metformin 500 mg tablet TAKE 1 TABLET BY MOUTH TWICE DAILY active Not Available Not Available No t Available atorvastati n 20 mg tablet TAKE 1 TABLET BY MOUTH DAILY active Not Available Not Available No t Available benzonatate 200 mg capsule TAKE 1 CAPSULE BY MOUTH THREE TIMES DAILY NEEDED FOR COUGH 07/14 completed Not Available Not Available Not Available meloxicam 15 mg tablet 02/19 completed Not Available Not Available Not Available prednisone 20 mg tablet TAKE 1 TABLET BY MOUTH TWICE DAILY 10/22 completed Not Available Not Available Not Available gabapentin 400 mg capsule Take 1 capsule 4 times a day by oral route for 30 days. 2024 active Not Available Not Available Not Avai lable valacyclovi r 500 mg tablet TAKE 1 TABLET BY MOUTH TWICE DAILY 07/14 completed Not Available Not Available Not Available meloxicam 7.5 mg tablet TAKE 1 TABLET BY MOUTH TWICE DAILY NEEDED 09/25 completed Not Available Not Available Not Available Percocet 10 mg-325 mg tablet Take 1 tablet 4 times a day by oral route for 30 days. 2024 active Not Available Not Available Not Avai lable losartan 100 mg tablet TAKE 1 TABLET BY MOUTH DAILY active Not Available Not Available No t Available hydrocortis one-pramoxi ne 1 %-1 % rectal cream APPLY RECTALLY TO THE AFFECTED AREA THREE TIMES DAILY NEEDED FOR HEMORRHOI DS active Not Available Not Available No t Available Ventolin HFA 90 mcg/actuati on aerosol inhaler TAKE 1 INHALATIO N EVERY 3-4 HOURS NEEDED FOR 7 DAYS NEEDED FOR SHORTNESS OF BREATH WHEN ACTIVITIE S active Not Available Not Available No t Available Paxlovid 300 mg (150 mg x 2)-100 mg tablets in a dose pack TK 2 NIRMATREL VIR TS AND 1 RITONAVIR T TOGETHER PO TWICE DAILY FOR 5 DAYS 07/14 completed Not Available Not Available Not Available Vitals Date Recorded Body height Provider Name an d Address Organization Details Last Updated DateTime 07/14/2024 172.72 cm Shannan Charlesalyssa [facility] 07/14/2024 10:23:49 Date Recorded Body height Heart rate Systolic blood pressure Diastolic blood pressure Provider Name and Address Organization Details Last Updated DateTime 09/13/2024 172.72 cm 100 /min 154 mm[Hg] 98 mm[Hg] Rashida George [facility] 09/13/2024 09:08:37 Date Recorded Body height Body mass index (BMI) Body weight Heart rate Oxygen saturation Oxygen saturation in Arterial blood by Pulse oximetry Systolic blood pressure Diastolic blood pressure Provider Name and Address Organization Details Last Updated DateTime 172.72 cm 36.6 kg/m2 720567. 76 g 96 /min 97 % 97 % 153 mm[Hg] 91 mm[Hg] Madyson Alhaji [facility] 4 10:12:43 Date Recorded Body height Body mass index (BMI) Body weight Heart rate Oxygen saturation Oxygen saturation in Arterial blood by Pulse oximetry Systolic blood pressure Diastolic blood pressure Provider Name and Address Organization Details Last Updated DateTime 172.72 cm 36.6 kg/m2 113257. 76 g 78 /min 98 % 98 % 227 mm[Hg] 114 mm[Hg] Samaria [facility] [facility] 4 10:13:13 Date Recorded Body height Heart rate Systolic blood pressure Diastolic blood pressure Provider Name and Address Organization Details Last Updated DateTime 05/12/2024 172.72 cm 62 /min 157 mm[Hg] 70 mm[Hg] Rashida George [facility] 05/12/2024 09:23:48 Social History Question Answer Notes LastModified by Organizat ion Details LastModified Time Tobacco Smoking Status Never Smoker Shannan Danny degroot [facility] 09/25/2021 13:28:55 Do You Have An Advance Directive? No Information n ot available 07/25/2022 In The 14 Days Before Symptom Onset, Have You Had Close Contact With A Laboratory-confirm ed COVID-19 While That Case Was Ill? No [email or web address] Information n ot available 09/25/2021 In The 14 Days Before Symptom Onset, Have You Had Close Contact With A Person Who Is Under Investigation For COVID-19 While That Person Was Ill? No [email or web address] Information not available 09/25/2021 What Type Of Diet Are You Following? REGULAR [email or web address] Information n ot available 09/25/2021 What Is The Highest Grade Or Level Of School You Have Completed Or The Highest Degree You Have Received? [id number] [email or web address] Information not available 09/25/2021 How Many Times Per Week Do You Exercise? 3-4 Times Per Week [email or web address] Information not available 09/25/2021 Do You Have A Medical Power Of Reconciliation Specialist? No [email or web address] Information not available 05/21/2023 What Was The Date Of Your Most Recent Tobacco Screening? 03/17/2024 [email or web address] Information not available 03/17/2024 What Is Your Relationship Status? [email or web address] Information not available 09/25/2021 Sex: Unknown Functional Status Question Answer Note LastModified by Organizat ion Details LastModified Time Do you use any illicit or recreational drugs? No [email or web address] Information not available 09/25/2021 What is your level of alcohol consumption? None [email or web address] Information not available 09/25/2021 Are you currently employed? Yes [email or web address] Information not available 09/25/2021 Are you able to walk? 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 Occasional [email or web address] Information not available 09/25/2021 Mental Status None recorded. Family History Relationship Description Onset Age of this Age Resolved Age Notes LastModified by Organization Details LastModified Time Father No current problems or disability [email or web address] Not available 09/07 13:20:21 Mother No current problems or disability [email or web address] Not available 09/07 13:20:21 Medical History Condition Response Bipolar Disease N Coronary Artery Disease N Gout N Seizure Disorder N Atrial Fibrillation N Thyroid Disease N Hernia N Head Trauma/Injury N Depression N COPD N Anxiety Disorder N Acid Reflux (GERD) N Cancer N Stroke N Skin Disorder N High Cholesterol N Liver Disease N Rheumatoid Arthritis N Headaches N Fibromyalgia N Kidney Disease N Autoimmune Disease N Osteoarthritis N Neurosurgery N DVT N Peptic Ulcer Disease N Anemia N Heart Attack (PA) N Diabetes N Cardiomyopathy N Bleeding Disorder N CHF N AIDS/HIV N Inflammatory Bowel Disease N Dementia N Asthma N Substance Abuse N Sleep Apnea N Hepatitis N Heart Disease N Pulmonary Embolism N Chronic Low Back Pain Y Hypertension N Osteoporosis N Past Encounters Encounter ID Performer Location Encounter Start Date Encounter Closed Date Diagnosis/Indication Diagnosis SNOMED-CT Code Diagnosis ICD10 Code Diagnosis Note [id number] Willam Packer MD [place] [address] [facility] [address] [place] [address] 09/25/2021 13:02:18 09/25/2021 13:53:32 Long-term drug therapy 502331006 Z79.899 The urine sample is being sent for quantitati ve LCMS analysis of illicit drugs (Cocaine, Methamphet amine, Heroin, Fentanyl, THC, Synthetic Cannabinoi ds, Kratom, MDMA, PCP, and Synthetic Stimulants , Opiates (Codeine, Hydrocodon e, Hydromorph one, and Morphine), Oxycodone, Oxymorphon e, Methadone, Synthetic Opioids (Tramadol, Tapentadol , and Buprenorph ine), Benzodiaze pines (Alprazola m, Clonazepam , Lorazepam, Diazepam, Nordazepam , Oxazepam, and Temazepam) , Gabapentin , Pregabalin , Muscle Relaxants (Carisopro dol, Cyclobenza julio, and Meprobamat e), Ketamine, Nalaxone, and Amphetamin e, as this patient is being prescribed opioid medication s for the first time at this practice. The purpose of this analysis is to confirm the patients stated medication usage and to establish baseline medication and metabolite quantities , and to evaluate for use of medication s that are not prescribed or reported by the patient. Lumbar radiculitis 40291 14590 3919661 M54.16 Lumbar spondylosis 43998 0009 M47.262 [id number] Willam Packer MD [place] [address] [place] [address] 11/21/2021 09:32:42 11/21/2021 09:54:50 Long-term drug therapy 585229943 Z79.899 Based on the patients urine confirmati on (LCMS) results, the patient's overall risk level will remain the same. I would consider the patient to be High risk based on these new results. In response to the patient's risk level and urine confirmati on I plan to not change the patient's opioid prescripti on.The patient was advised that the purpose of this urine drug screen is to monitor for compliance and to assist in risk stratifica tion. The results of this preliminar y screening test was discussed with the patient.Th is patient has a history one or more of the following risk factors that make them higher risk for drug abuse: family history of alcohol, illicit, or prescripti on drug abuse, personal history of alcohol, illicit, or prescripti on drug abuse, psychiatri c illness (including depression /anxiety), history of sexual abuse, age less than 45, lower socioecono harry status, stressful family dynamics, and/or poor psychosoci al support. Send for LCMS testing for Cocaine, Methamphet amines, Heroin, Fentanyl, Marijuana, and Synthetic Cannabinoi ds as these are commonly abused illicit drugs in our community. I am also ordering LCMS testing for Codeine, Hydrocodon e, Hydromorph one, Morphine, Oxycodone, Oxymorphon e, Methadone, Tapentadol , Tramadol, and Buprenorph ine as these are prescripti on opiates/op ioids that are commonly abused. Send for LCMS testing for Kratom, Dextrometh orphan, Benzodiaze pines (Alprazola m, Clonazepam , Lorazepam, Diazepam, Nordazepam , Oxazepam, and Temazepam) , and Synthetic stimulants (Bath Salts) as these are legal drugs that are frequently abused in our community. Lumbar radiculitis 37534 51852 [id number] M54.16 Lumbar spondylosis 09504 0009 M47.844 [id number] Rashida Monterroso APRN [place] [address] [place] [address] 01/23/2022 09:29:10 01/23/2022 09:43:35 Lumbar spondylosis 865022238 M47.816 Lumbar radiculitis 11847 72583 8957240 M54.16 Long-term drug therapy 413632827 Z79.899 Based on the patients urine confirmati on (LCMS) results, the patient's overall risk level will remain the same. I would consider the patient to be High risk based on these new results. In response to the patient's risk level and urine confirmati on I plan to not change the patient's opioid prescripti on. [id number] Rashida MonterrosoRADU [place] [address] [place] [address] 03/25/2022 08:50:02 03/25/2022 09:12:40 Long-term drug therapy 485885211 Z79.899 The patient was advised that the purpose of this urine drug screen is to monitor for compliance and to assist in risk stratifica tion. The results of this preliminar y screening test was discussed with the patient.Th is patient has a history one or more of the following risk factors that make them higher risk for drug abuse: family history of alcohol, illicit, or prescripti on drug abuse, personal history of alcohol, illicit, or prescripti on drug abuse, psychiatri c illness (including depression /anxiety), history of sexual abuse, age less than 45, lower socioecono harry status, stressful family dynamics, and/or poor psychosoci al support. Send for LCMS testing for Cocaine, Methamphet amines, Heroin, Fentanyl, Marijuana, and Synthetic Cannabinoi ds as these are commonly abused illicit drugs in our community. I am also ordering LCMS testing for Codeine, Hydrocodon e, Hydromorph one, Morphine, Oxycodone, Oxymorphon e, Methadone, Tapentadol , Tramadol, and Buprenorph ine as these are prescripti on opiates/op ioids that are commonly abused. Send for LCMS testing for Kratom, Dextrometh orphan, Benzodiaze pines (Alprazola m, Clonazepam , Lorazepam, Diazepam, Nordazepam , Oxazepam, and Temazepam) , and Synthetic stimulants (Bath Salts) as these are legal drugs that are frequently abused in our community. Lumbar spondylosis 71283 0009 M47.816 Lumbar radiculitis 33130 42056 2193454 M54.16 [id number] Willam Packer MD [place] [address] [place] [address] 05/22/2022 08:16:28 05/22/2022 08:33:33 Long-term drug therapy [id number] Z79.899 Lumbar spondylosis 69993 0009 M47.816 Lumbar radiculitis 34061 30003 1284250 M54.16 [id number] Carlos Joyner MD [place] [address] [place] [address] 6 06/24/2022 10:39:09 06/24/2022 10:55:09 Long-term drug therapy 835125534 Z79.899 Based on the patients urine confirmati on (LCMS) results, the patient's overall risk level will remain the same. I would consider the patient to be High risk based on these new results. In response to the patient's risk level and urine confirmati on I plan to not change the patient's opioid prescripti on. Lumbar spondylosis 43581 0009 M47.816 Lumbar radiculitis 26384 03027 8509656 M54.16 [id number] Willam Packer MD [place] [address] [place] [address] 6 07/25/2022 10:11:19 07/25/2022 10:27:24 Long-term drug therapy 325843156 Z79.899 Lumbar radiculitis 98100 80767 6344737 M54.16 Lumbar spondylosis 03539 0009 M47.806 [id number] Willam Packer MD [place] [address] [place] [address] 6 08/19/2022 08:39:40 08/19/2022 09:02:13 Lumbar radiculitis 7822311271 0940659 M54.16 Lumbar spondylosis 10459 0009 M47.816 Long-term drug therapy 412219766 Z79.845 [id number] Willam Packer MD [place] [address] [place] [address] 09/23/2022 13:29:10 09/23/2022 14:44:28 Long-term drug therapy 592813125 Z79.899 Lumbar radiculitis 00235 74850 8680073 M54.16 Lumbar spondylosis 68437 0009 M47.758 [id number] Willam Packer MD [place] [address] [place] [address] 10/22/2022 13:14:18 10/22/2022 13:35:44 Long-term drug therapy 940108101 Z79.899 Up to date Informed Consent and Opioid Agreement have been signed and incorporat ed into the chart. Patient has been provided written educationa l materials regarding potential adverse effects of ux interaction designer opioid therapy MEDICAL INDICATION S: Pain has been refractory to repeated attempts at conservati ve management , is of a moderate to severe degree and an organic source is suspected. The medication prescribed will be used in conjuction with a comprehens dacia pain program to meet the establishe d goals. Urine drug screening is regularly performed to monitor compliance during active treatment for medication misuse or diversion. FABIÁN/OAR S has been reviewed and documented to assure compliance with dosing scheduling , pain agreement MY OVERALL IMPRESSION IS THAT THIS PATIENT IS BENEFITING FROM OPIOID THERAPY. Lumbar radiculitis 02153 51196 7803804 M54.16 Lumbar spondylosis 56492 0009 M47.192 [id number] Willam Packer MD [place] [address] [place] [address] 11/19/2022 12:21:02 11/19/2022 12:42:39 Long-term drug therapy 063498917 Z79.899 Up to date Informed Consent and Opioid Agreement have been signed and incorporat ed into the chart. Patient has been provided written educationa l materials regarding potential adverse effects of ux interaction designer opioid therapy MEDICAL INDICATION S: Pain has been refractory to repeated attempts at conservati ve management , is of a moderate to severe degree and an organic source is suspected. The medication prescribed will be used in conjuction with a comprehens dacia pain program to meet the establishe d goals. Urine drug screening is regularly performed to monitor compliance during active treatment for medication misuse or diversion. FABIÁN/OAR S has been reviewed and documented to assure compliance with dosing scheduling , pain agreement MY OVERALL IMPRESSION IS THAT THIS PATIENT IS BENEFITING FROM OPIOID THERAPY. Lumbar radiculitis 47723 62301 0466496 M54.16 Lumbar spondylosis 91053 0009 M47.164 [id number] Willam Packer MD [place] [address] [place] [address] 01/21/2023 12:37:19 01/21/2023 13:00:39 Lumbar spondylosis 796840895 M47.816 Lumbar radiculitis 81264 88429 1860982 M54.16 Long-term drug therapy 949250237 Z79.804 [id number] Willam Packer MD [place] [address] [place] [address] 02/19/2023 12:40:40 02/19/2023 12:58:56 Long-term drug therapy 847034212 Z79.899 Overweight 016661283 E66 .3 Hypertensi on screening 747652072 Z13.6 Lumbar spondylosis 24282 0009 M47.816 Lumbar radiculitis 43142 34401 9511233 M54.16 [id number] Willam Packer MD [place] [address] [place] [address] 03/19/2023 13:32:44 03/19/2023 13:46:47 Long-term drug therapy 711186612 Z79.899 Lumbar radiculitis 53658 20318 9706552 M54.16 Lumbar spondylosis 55054 0009 M47.816 Overweight 849019936 E66 .3 [id number] Willam Packer MD [place] [address] [place] [address] 04/16/2023 12:51:02 04/16/2023 13:17:17 Lumbar radiculitis 2475292680 0503152 M54.16 Lumbar spondylosis 49551 0009 M47.816 Long-term drug therapy 159579277 Z79.850 [id number] Willam Packer MD [place] [address] [place] [address] 05/21/2023 13:10:02 05/21/2023 13:46:20 Long-term drug therapy 519487039 Z79.899 Up to date Informed Consent and Opioid Agreement have been signed and incorporat ed into the chart. Patient has been provided written educationa l materials regarding potential adverse effects of ux interaction designer opioid therapy MEDICAL INDICATION S: Pain has been refractory to repeated attempts at conservati ve management , is of a moderate to severe degree and an organic source is suspected. The medication prescribed will be used in conjuction with a comprehens dacia pain program to meet the establishe d goals. Urine drug screening is regularly performed to monitor compliance during active treatment for medication misuse or diversion. FABIÁN/OAR S has been reviewed and documented to assure compliance with dosing scheduling , pain agreement MY OVERALL IMPRESSION IS THAT THIS PATIENT IS BENEFITING FROM OPIOID THERAPY. Lumbar radiculitis 78787 03583 0837221 M54.16 Lumbar spondylosis 69632 0009 M47.744 [id number] Willam Packer MD [place] [address] [place] [address] 06/19/2023 13:14:23 06/19/2023 13:35:38 Long-term drug therapy 229436904 Z79.899 Lumbar radiculitis 32028 37517 5888708 M54.16 Lumbar spondylosis 68425 0009 M47.816 Overweight 341592060 E66 .3 Hypertensi on screening 652659601 Z13.6 [id number] Willam aPcker MD [place] [address] [place] [address] 07/22/2023 14:35:59 07/22/2023 14:52:09 Long-term drug therapy 014083463 Z79.899 Send for LCMS confirmati on of Oxycodone and Oxymorphon e to confirm the quantitati ve levels of these drugs that the patient is prescribed . Send for LCMS confirmati on of Gabapentin to confirm the quantitati ve level of this drug and its metabolite as it will not be detected in qualitativ e screen and the patient is currently prescribed Gabapentin . Lumbar radiculitis 63824 01260 0906098 M54.16 Lumbar spondylosis 56845 0009 M47.816 Overweight 989663869 E66 .3 Hypertensi on screening 391746143 Z13.6 [id number] Willam Packer MD [place] [address] [place] [address] 08/19/2023 08:48:03 08/19/2023 09:04:47 Lumbar radiculitis 8905586008 2079788 M54.16 Lumbar spondylosis 98973 0009 M47.816 Long-term drug therapy 404637437 Z79.435 [id number] Willam Packer MD [place] [address] [place] [address] 09/18/2023 10:31:23 09/18/2023 10:54:50 Long-term drug therapy 060818609 Z79.899 Lumbar radiculitis 96987 09299 3938465 M54.16 Lumbar spondylosis 69944 0009 M47.555 [id number] Willam Packer MD [place] [address] [place] [address] 11/17/2023 11:03:17 11/17/2023 11:14:20 Lumbar radiculitis 8163577222 5748842 M54.16 Lumbar spondylosis 15284 0009 M47.816 Long-term drug therapy 762301358 Z79.899 Chronic pain 21639891 G8 9.29 [id number] Willam Packer MD [place] [address] [place] [address] 01/15/2024 09:59:30 01/15/2024 10:20:12 Long-term drug therapy 162531871 Z79.899 Lumbar radiculitis 71567 03698 3368133 M54.16 Lumbar spondylosis 47489 0009 M47.816 Chronic pain 95488921 G8 9.29 [id number] Rashida Monterroso APRN [place] [address] [place] [address] 03/17/2024 09:56:32 03/17/2024 10:26:14 Lumbar spondylosis 670597355 M47.816 Lumbar radiculitis 14131 67869 0331795 M54.16 Long-term drug therapy 760497327 Z79.899 Chronic pain 58769225 G8 9.29 [id number] JAMAL MOYER MD [place] [address] [place] [address] 05/12/2024 09:09:34 05/12/2024 09:37:18 Long-term drug therapy 389559187 Z79.899 Lumbar spondylosis 30398 0009 M47.816 He reports tremendous improvemen t in symptoms with his current oral medication regimen. The relief he receives allows him to remain active and engage in hobbies. Will continue this unchanged. Lumbar radiculitis 10399 48526 8762178 M54.16 Chronic pain 99861353 G8 9.29 [id number] JAMAL MOYER MD [place] [address] [place] [address] 07/14/2024 09:45:22 07/14/2024 10:28:19 Long-term current use of drug therapy 560772783 Z79.899 Chronic pain 27412052 G8 9.29 Lumbar spondylosis 30701 0009 M47.816 We will continue his current oral medication regimen without change. He feels that the relief allows him to remain mobile, active and travel as desired. Lumbar radiculitis 08103 69091 4565789 M54.16 Long-term drug therapy 320306208 Z79.878 [id number] JAMAL MOYER MD [place] [address] [place] [address] 09/13/2024 08:58:09 09/13/2024 09:19:13 Long-term current use of drug therapy 208511806 Z79.899 Lumbar spondylosis 30332 0009 M47.816 Unfortunat meir, despite several discussion s regarding lumbar MBB/RFA, he continues to adamantly refuse all interventi onal procedures . He does remain happy with his current oral medication regimen. He is able to maintain an active lifestyle and engage in several hobbies. Will not make any changes today. Lumbar radiculitis 04191 75345 3078685 M54.16 Long-term drug therapy 122896839 Z79.899 Health Concerns Section Related Observation LastModified by Organization Detai ls LastModified Time None Recorded Concern Status LastModified by Organization Details LastModified Time None Recorded Advance Directives Directive N: Payers Insurance Date Sequence Insurance Name Policy Number Policy Ramires Covered Member ID Ramires Member ID Guarantor Name 09/23/2024 1 [facility] (MEDICAID HMO) Dillon Andres [id number] Dillon Andres Notes Date Note Type Note Provider Name and Address Organization Details Recorded Time 01/15/2024 text/html Low back painReported bypatient.Onset:adriana e of onset: (2001) Location:paraspinal : bilateral; pain is not radiating Duration:varies throughout the day Context:overuse Quality:aching; burning; gnawing; stabbing Pain IntensityMild; current pain level: 4/10; average pain level: 5/10; worst pain level: 9/10 Alleviating Factors:lying down; rest; limited weight bearing Aggravating Factors:lifting; carrying; twisting; bending/squatting; pushing/pulling; standing from a seated position; cold weather Associated Symptoms:no weakness; no swelling; no popping/clicking; no bowel incontinence; no urinary retention; no urinary incontinence; no perineal paresthesia/anesthe nanci;numbness(RIGHT FOOT.);tingling(RIG HT FOOT.) Functional Assessment of ADLsLiving independently.;Diff iculty bathing/grooming secondary to pain.;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 Prior Imaging:MRI (12/2016) Lumbar Surgery:none Interventional Treatment History:lumbar ESIs: no relief Physical Therapy:Facility: ([place], [place].); completed all recommended PT visits; complete more than 6weeks; response to therapy: no improvement in pain/symptoms Current Analgesics:Oxycodon e effective (10/325MG); Gabapentin effective (400MG); Reported pain relief- 90% for 5 hours; LAST DOSE WAS THIS AM Medications History:NSAIDs: (MELOXICAM-HELPFUL. DICLOFENAC-NOT HELPFUL.); Neuropathics: (GABAPENTIN-HELPFUL . LYRICA-NOT HELPFUL. CYMBALTA-NOT HELPFUL.); Opioid pain medications: (PERCOCET-HELPFUL. HYDROCDONE-NOT HELPFUL.) Other Conservative Treatments:chiropra ctic treatments: not effective; LSO brace: not effective; activity modification: not effective Prior Pain Management:yes: (DR. VILLATORO) Complete Care Program:Order Date: (01/15/2024) KARTHIK LINK NP [address] [place] [address], [phone], [facility] 01/15/2024 13:08:26 03/17/2024 text/html Low back painReported bypatient.Onset:adriana e of onset: (2001) Location:paraspinal : bilateral; pain is not radiating Duration:varies throughout the day Context:overuse Quality:aching; burning; gnawing; stabbing Pain IntensityMild; current pain level: 4/10; average pain level: 5/10; worst pain level: 9/10 Alleviating Factors:lying down; rest; limited weight bearing Aggravating Factors:lifting; carrying; twisting; bending/squatting; pushing/pulling; standing from a seated position; cold weather Associated Symptoms:no weakness; no swelling; no popping/clicking; no bowel incontinence; no urinary retention; no urinary incontinence; no perineal paresthesia/anesthe nanci;numbness(RIGHT FOOT.);tingling(RIG HT FOOT.) Functional Assessment of ADLsLiving independently.;Diff iculty bathing/grooming secondary to pain.;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 Prior Imaging:MRI (12/2016) Lumbar Surgery:none Interventional Treatment History:lumbar ESIs: no relief Physical Therapy:Facility: ([place], [place] completed all recommended PT visits; complete more than 6weeks; response to therapy: no improvement in pain/symptoms Current Analgesics:Oxycodon e effective (10/325MG); Gabapentin effective (400MG); Reported pain relief- 90% for 5 hours; LAST DOSE WAS THIS AM 03/17/2024 Medications History:NSAIDs: (MELOXICAM-HELPFUL. DICLOFENAC-NOT HELPFUL.); Neuropathics: (GABAPENTIN-HELPFUL . LYRICA-NOT HELPFUL. CYMBALTA-NOT HELPFUL.); Opioid pain medications: (PERCOCET-HELPFUL. HYDROCDONE-NOT HELPFUL.) Other Conservative Treatments:chiropra ctic treatments: not effective; LSO brace: not effective; activity modification: not effective Prior Pain Management:yes: (DR. VILLATORO) Complete Care Program:Order Date: (01/15/2024) Rashida Monterroso APRN [address] [place], [address], [facility] 03/17/2024 14:30:31 05/12/2024 text/html Low back painReported bypatient.Onset:adriana e of onset: (2001) Location:paraspinal : bilateral; pain is not radiating Duration:varies throughout the day Context:overuse Quality:aching; burning; gnawing; stabbing Pain IntensityMild; current pain level: 4/10; average pain level: 5/10; worst pain level: 9/10 Alleviating Factors:lying down; rest; limited weight bearing Aggravating Factors:lifting; carrying; twisting; bending/squatting; pushing/pulling; standing from a seated position; cold weather Associated Symptoms:no weakness; no swelling; no popping/clicking; no bowel incontinence; no urinary retention; no urinary incontinence; no perineal paresthesia/anesthe nanci;numbness(RIGHT FOOT.);tingling(RIG HT FOOT.) Functional Assessment of ADLsLiving independently.;Diff iculty bathing/grooming secondary to pain.;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 Prior Imaging:MRI (12/2016) Lumbar Surgery:none Interventional Treatment History:lumbar ESIs: no relief Physical Therapy:Facility: [facility], [place].); completed all recommended PT visits; complete more than 6weeks; response to therapy: no improvement in pain/symptoms Current Analgesics:Oxycodon e effective (10/325MG); Gabapentin effective (400MG); Reported pain relief- 90% for 5 hours; LAST DOSE WAS THIS AM 03/17/2024 Medications History:NSAIDs: (MELOXICAM-HELPFUL. DICLOFENAC-NOT HELPFUL.); Neuropathics: (GABAPENTIN-HELPFUL . LYRICA-NOT HELPFUL. CYMBALTA-NOT HELPFUL.); Opioid pain medications: (PERCOCET-HELPFUL. HYDROCDONE-NOT HELPFUL.) Other Conservative Treatments:chiropra ctic treatments: not effective; LSO brace: not effective; activity modification: not effective Prior Pain Management:yes: (DR. VILLATORO) Complete Care Program:Order Date: (01/15/2024) Rashida Monterroso APRN [address] [place], [id number], [facility] 05/12/2024 10:12:43 07/14/2024 text/html Low back painReported bypatient.Onset:adriana e of onset: (2001) Location:paraspinal : bilateral; pain is not radiating Duration:varies throughout the day Context:overuse Quality:aching; burning; gnawing; stabbing Pain IntensityMild; current pain level: 4/10; average pain level: 5/10; worst pain level: 9/10 Alleviating Factors:lying down; rest; limited weight bearing Aggravating Factors:lifting; carrying; twisting; bending/squatting; pushing/pulling; standing from a seated position; cold weather Associated Symptoms:no weakness; no swelling; no popping/clicking; no bowel incontinence; no urinary retention; no urinary incontinence; no perineal paresthesia/anesthe nanci;numbness(RIGHT FOOT.);tingling(RIG HT FOOT.) Functional Assessment of ADLsLiving independently.;Diff iculty bathing/grooming secondary to pain.;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 Prior Imaging:MRI (12/2016) Lumbar Surgery:none Interventional Treatment History:lumbar ESIs: no relief Physical Therapy:Facility: ([place] completed all recommended PT visits; complete more than 6weeks; response to therapy: no improvement in pain/symptoms Current Analgesics:Oxycodon e effective (10/325MG); Gabapentin effective (400MG); Reported pain relief- 90% for 5 hours; LAST DOSE WAS THIS AM 07/14/2024 Medications History:NSAIDs: (MELOXICAM-HELPFUL. DICLOFENAC-NOT HELPFUL.); Neuropathics: (GABAPENTIN-HELPFUL . LYRICA-NOT HELPFUL. CYMBALTA-NOT HELPFUL.); Opioid pain medications: (PERCOCET-HELPFUL. HYDROCDONE-NOT HELPFUL.) Other Conservative Treatments:chiropra ctic treatments: not effective; LSO brace: not effective; activity modification: not effective Prior Pain Management:yes: (DR. VILLATORO) Complete Care Program:Order Date: (01/15/2024) Rashida Monterroso APRN [address] [place] [address], [phone], [facility] 07/14/2024 11:31:52 09/13/2024 text/html Low back painReported bypatient.Onset:adriana e of onset: (2001) Location:paraspinal : bilateral; pain is not radiating Duration:varies throughout the day Context:overuse Quality:aching; burning; gnawing; stabbing Pain IntensityMild; current pain level: 4/10; average pain level: 5/10; worst pain level: 9/10 Alleviating Factors:lying down; rest; limited weight bearing Aggravating Factors:lifting; carrying; twisting; bending/squatting; pushing/pulling; standing from a seated position; cold weather Associated Symptoms:no weakness; no swelling; no popping/clicking; no bowel incontinence; no urinary retention; no urinary incontinence; no perineal paresthesia/anesthe nanci;numbness(RIGHT FOOT.);tingling(RIG HT FOOT.) Functional Assessment of ADLsLiving independently.;Diff iculty bathing/grooming secondary to pain.;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 Prior Imaging:MRI (12/2016) Lumbar Surgery:none Interventional Treatment History:lumbar ESIs: no relief Physical Therapy:Facility: ([place] completed all recommended PT visits; complete more than 6weeks; response to therapy: no improvement in pain/symptoms Current Analgesics:Oxycodon e effective (10/325MG); Gabapentin effective (400MG); Reported pain relief- 90% for 5 hours; 09/13/2024 - LAST DOSE TAKEN am Medications History:NSAIDs: (MELOXICAM-HELPFUL. DICLOFENAC-NOT HELPFUL.); Neuropathics: (GABAPENTIN-HELPFUL . LYRICA-NOT HELPFUL. CYMBALTA-NOT HELPFUL.); Opioid pain medications: (PERCOCET-HELPFUL. HYDROCDONE-NOT HELPFUL.) Other Conservative Treatments:chiropra ctic treatments: not effective; LSO brace: not effective; activity modification: not effective Prior Pain Management:yes: (DR. VILLATORO) Complete Care Program:Order Date: (01/15/2024) Rashida Monterroso, [facility] [address] [place], [phone], [facility] 09/13/2024 10:04:01
--- OUTSIDE RECORDS SUMMARY | 2024-11-19 23:15 | XMS_ITS | Clinical Summary ---
Author Organization [facility] Address [address] [place] [id number] Care Team Providers Care Portrait Artist Name Role Phone Nicola Cruz MD Primary Care Provider [phone] Source Comments This information has been disclosed to you from confidential records protectedfrom disclosure by state law. You shall make no further disclosure of thisinformation without the specific, written, and informed release of theindividual to whom it pertains, or as otherwise permitted by law. A generalauthorization for the release of medical or other information is not sufficientfor the purposes of therelease of HIV test results or diagnoses. [id number] Allergies No known active allergies Medications No known medications Active Problems No known active problems Family History Medical History Relation Comments Melanoma Maternal Grandmother face and ar ms Eczema Neg Hx Psoriasis Neg Hx Relation Status Comments Maternal Grandmother Social History Tobacco Use Types Packs/Day Years Used Date Smoking Tobacco: Never Alcohol Use Standard Drinks/Week Comments Yes 0 (1 standard drink = 0.6 oz pur e alcohol) Sex and Gender Information Value Date Recorded Sex Assigned at Not on file Legal Sex Male 7:58 PM EST Gender Identity Not on file Sexual Orientation Not on file Plan of Treatment Health Maintenance Due Date Last Done Comments Abnormal Colonoscopy Follow Up 1973 Hepatitis C Screening (MyChart) 1973 Alcohol Misuse Screening 1991 Depression Screening 1991 HIV Screening 1991 Immunization: DTaP/Tdap/Td (1 - Tdap) 1992 Immunization: Hepatitis B (1 of 3 - 19+ 3-dose series) 1992 Cologuard (FIT-DNA) 2018 Colonoscopy 2018 Colorectal Cancer Screening (MyChart) 2018 Stool Testing (gFOBT) 2018 Immunization: Pneumococcal (1 of 1 - PCV) 2023 Immunization: Zoster (1 of 2) 2023 Immunization: COVID-19 ( - 2023- season) 2024 Immunization: Influenza (MyChart) (Season Ended) 02/07 Insurance [facility] care Address: [address] [id number] Care Teams Portrait Artist Relationship Specialty Start Date End Date Nicola Cruz MD [address] [place] [address] PCP - General Internal Medicine 10/08/13
[2024-11-20 06:55] LABS: Hepatitis B Surface Antigen Negative (Negative)
== END 2024-11-18 23:59 | disposition home or self-care (01) ==
LOC: LAB.DROPOF 11-19 23:13
PROVIDERS: PCP Family Medicine; Visit Provider Family Medicine
DX: Z11.59 Encounter for screening for other viral diseases (principal); E11.9 Type 2 diabetes mellitus without complications; K64.9 Unspecified hemorrhoids; Z12.5 Encounter for screening for malignant neoplasm of prostate
CPT/HCPCS: 80053; 80061; 82043; 82570; 85025; 86803; 87340; 87389; G0103